=== PATIENT | female | born 1975 | race Caucasian/White ===

== ENCOUNTER 2016-07-21 12:41 | Emergency (ER) | payer MEDICARE, MEDICAID ==
[~2016-07-21] VITALS: Ht 165.1 cm; Wt 63.6 kg
[2016-07-21 12:45] VITALS: BP 130/81; PULSE 96; RESP 18; O2SAT 98
--- NOTE | 2016-07-21 13:00 | ED.REPORT ---
HPI-Chest Pain 40 and Over Date of Service Jul 21, 2016 ED Provider: Nakul Maharaj DO Patient is as 40 year old female with a hx of rheumatoid arthritis, MS, pulmonary embolism, and gastroparesis who presents to the ED due to chest pain onset last night. Pt says she is, "just not feeling well in general." She describes the pain as a dull ache and rates it 10/10 in severity. Nursing Notes Stated Complaint: THROWING UP,BAD CHEST PAINS,HARD TO BREATH Chief Complaint: Chest Pain-Non Cardiac Nature Nursing Notes Reviewed: Yes Allergies: Coded Allergies: Penicillins (Verified Allergy, Severe, 07/21/16) ketamine (Verified Allergy, Severe, 07/21/16) promethazine (Verified Allergy, Severe, 07/21/16) soy (Verified Allergy, Severe, 07/21/16) Uncoded Allergies: CELIAC (Allergy, Severe, 07/21/16) General Time Seen by MD: 13:00 Chief Complaint Chest pain Hx Obtained From: Patient Arrived By: Walk-in Sudden in Onset?: Yes Onset Occurred: 9 - 12 hours ago Symptom Duration: Since onset Quality: Aching Radiation: : Does not radiate Severity: Current: Pain level 10 out of 10 Recent Healthcare: No recent doctor visit, No recent hospitalization Similar Sx Previous: No Past Medical History Past Medical History pulmonary embolism gastroparesis rheumatoid arthritis MS Past Surgical History denies Smoking History Unknown if Ever Smoker Social History Other Social History: Good social support Ambulatory Status Independent Review of Systems Cardiovascular: Reports: Chest pain Complete sys rev & neg: except as marked. Physical Exam Initial Vital Signs Vital Signs (First) Date Time Temp Pulse Resp B/P Pulse Ox O2 Delivery O2 Flow Rate FiO2 07/21/16 12:45 96 18 130/81 98 Room Air 07/21/16 17:22 36.6 Initial VS: Reviewed General/Constitutional: Awake, Alert, No acute distress, Well appearing, Cooperative, Not toxic appearing Respiratory / Chest: Atraumatic, Breath sounds NL, Breath sounds = bilat, No respiratory distress, No rales, No rhonchi, No wheezing, No retractions khan cath in right chest Cardiovascular: Heart rate NL, Regular rhythm, Heart sounds NL, No gallop, No murmurs, No rubs Abdomen: Atraumatic, Soft, Non-tender, McBurney's non-tender, No guarding, No rebound, BS normoactive Interpretation & Diagnostics Interpretation & Diagnostics: ANGIOGRAPHY CT IMPRESSION: No left-sided pulmonary embolus is found. There is a small nonocclusive thrombus within the right upper lobe pulmonary artery extending into the right posterior upper lobe arterial segment. No pulmonary infarction or ischemic injury is associated. Dictated by: Gregorio Mar M.D. on 07/21/2016 at 15:50 Approved by: Gregorio Mar M.D. on 07/21/2016 at 16:04 Lab Results Interpretation Result Diagram: 07/21/16 1353 07/21/16 1353 Test 07/21/16 13:53 07/21/16 13:55 White Blood Count 8.1th/mm3 (3.8-10.1) Red Blood Count 3.61mil/mm3 (3.90-5.20) Hemoglobin 11.8g/dL (12.0-15.6) Hematocrit 36.0% (35.0-46.0) Mean Corpuscular Volume 99.7fL (81-100) Mean Corpuscular Hemoglobin 32.7pg (27.0-35.0) Mean Corpuscular Hemoglobin Concent 32.8% (32.0-37.0) Red Cell Distribution Width 14.8% (12.3-15.4) Platelet Count 209bil/L (150-400) Neutrophils (%) (Auto) 63.9% (40-74) Lymphocytes (%) (Auto) 26.9% (14-46) Monocytes (%) (Auto) 6.6% (4-12) Eosinophils (%) (Auto) 2.1% (0-5) Basophils (%) (Auto) 0.4% (0-3) D-Dimer < 0.5mg/L (<0.50) Sodium Level 140mEq/L (134-144) Potassium Level 3.8mEq/L (3.5-5.2) Chloride Level 106mEq/L (97-108) Carbon Dioxide Level 22mmol/L (18-29) Blood Urea Nitrogen 8mg/dL (6-24) Creatinine 0.32mg/dL (0.57-1.00) Estimat Glomerular Filtration Rate 326mL/min (>59) Glucose Level 102mg/dL (60-99) Calcium Level 8.2mg/dL (8.5-10.1) Magnesium Level 1.7mg/dL (1.6-2.6) Total Bilirubin 0.6mg/dL (0.0-1.2) Aspartate Amino Transf (AST/SGOT) 13U/L (0-50) Alanine Aminotransferase (ALT/SGPT) 7U/L (0-32) Alkaline Phosphatase 36U/L (25-150) Troponin T < 0.010ug/L (0.0-0.011) Total Protein 5.7g/dL (6.4-8.4) Albumin 3.6g/dL (3.4-5.0) Hold Diaz Top Tube Received (Received) ECG Interpretation Time: 14:37 Interpreted by: ED physician Normal ECG Interpretation: Normal ECG w/ rate of... (59) Re-Eval/Medical Decision Med Decision/Clinical Course This is a patient with known recurrent pulmonary emboli most recently approximately a month ago who presents on anticoagulation with recurrent chest pain concerning for recurrent PE. Chest CT is obtained which shows a pulmonary embolism in the same distribution of her PE one month ago, initially her d-dimer is negative. These findings in combination suggest no new pulmonary embolism. Patient's artery on full dose anticoagulation. She is agreeable to discharge and strict return and follow-up precautions are given. Time of Eval: 16:42 Re-Evaluation/Progress Note: Pt rechecked. Informed of Ct results and plan of treatment. Pt understands and agrees with plan. All questions addressed. Counseled Regarding: Diagnosis, Lab results, Need for follow-up, When/why to return to ED Discharge & Departure Primary Impression: Chest pain Chest pain type: unspecified Qualified Code: R07.9 - Chest pain, unspecified Disposition: Home Discharge Condition All VS Reviewed: Yes Condition: Stable Additional Instructions: Based on your lab and CAT scan today as compared with your CAT scan from before it does not appear to have a new pulmonary embolism, nor does it appear that you have a heart attack or pneumonia or other pathology. Continue your regular medication. Call your primary care and specialist at [facility] as needed. Return to ER for any concerns for pulmonary embolism, or other concerns. Scribe Attestation Portion of this note were transcribed by Gilbert Ashton. I, Dr. Maharaj, personally performed the history, physical exam, and medical decision-making: I reviewed and confirmed the accuracy for the information in the transcribed note. Signed by: cari Singh, 07/21/16 Nakul Bowser DO Jul 21, 2016 13:00 GILBERT ASHTON Jul 21, 2016 13:30
[2016-07-21] MEDS ORDERED: Ondansetron 2 mg/mL 2 mL Inj IVPUSH ONE (13:25)
[2016-07-21 13:57] LABS: BASOPHILS % (AUTO) 0.4 % (0-3); EOSINOPHILS % (AUTO) 2.1 % (0-5); MONOCYTES % (AUTO) 6.6 % (4-12); Mean Corpuscular Hemoglobin 32.7 pg (27.0-35.0); Mean Corpuscular Volume 99.7 fL (81-100); NEUTROPHILS % (AUTO) 63.9 % (40-74); Platelet Count 209 bil/L (150-400)
[2016-07-21 14:35] LABS: Magnesium 1.7 mg/dL (1.6-2.6)
[2016-07-21 14:37] LABS: TROPONIN T < 0.010 ug/L (0.0-0.011)
[2016-07-21] MEDS ORDERED: ProchlorPERazine 5 mg/mL 2 mL Inj IVPUSH ONE (15:00)
--- NOTE | 2016-07-21 16:06 | DRSVH ---
PROCEDURE: CT ANGIO CHEST PULMONARY EMBOLISM ([id number]) INDICATIONS: chest pain, h/o recurrent PE TECHNIQUE: After the administration of intravenous contrast, 2 mm thick sections acquired from the pulmonary api zhanna to the posterior costophrenic angles. 3-dimensional maximum intensity projection (MIP) coronal a nd sagittal reformats were then acquired through the thorax. For radiation dose reduction, the follo wing was used: automated exposure control, adjustment of mA and/or kV according to patient size. COMPARISON: [facility], CT, PE STUDY (CTA CHEST), 01/08/2008, 15:02. FINDINGS: Image quality: Excellent. Pulmonary arteries: Pulmonary arteries are normal in size, and demonstrate no definite left-sided in traluminal filling defects to suggest central pulmonary embolism. There is, however, a nonocclusive thrombus involving the right upper lobe pulmonary artery, branching posteriorly into the posterior se gmental pulmonary artery in that area. Lungs and pleura: Lungs are clear. No pleural effusions or pneumothorax. Central and peripheral ai rways are patent. Mediastinum: Heart size is normal, without pericardial effusion. No mediastinal or hilar adenopathy . Thoracic aorta is normal in caliber and enhancement. Esophagus is normal in caliber, without hiat al hernia. Bones and chest wall: No suspicious bony lesions. Ribs and thoracic spine appear intact throughout. Thyroid gland appears normal where well visualized. No axillary or supraclavicular adenopathy. Abdomen: Visualized upper abdominal solid organs appear normal in the early arterial phase of enhanc ement. IMPRESSION: No left-sided pulmonary embolus is found. There is a small nonocclusive thrombus within the right upper lobe pulmonary artery extending into the right posterior upper lobe arterial segment. No pulmonary infarction or ischemic injury is associated. Dictated by: Gregorio Mar M.D. on 07/21/2016 at 15:50 Approved by: Gregorio Mar M.D. on 07/21/2016 at 16:04
[2016-07-21] MEDS ORDERED: HepLOK Flush 100 unit/mL 5 mL Inj ONE ×2 (17:09→17:10)
[2016-07-21 17:22] VITALS: BP 112/55; PULSE 74; RESP 18; O2SAT 100
== END 2016-07-21 17:24 | disposition home or self-care (01) ==
LOC: SED 12:41
DX: R07.9 Chest pain, unspecified (principal); Z86.711 Personal history of pulmonary embolism; Z87.19 Personal history of other diseases of the digestive system; Z87.39 Personal history of other diseases of the musculoskeletal system and connective tissue; Z88.0 Allergy status to penicillin; Z88.8 Allergy status to other drugs, medicaments and biological substances
CPT/HCPCS: 36415; 71275; 80053; 83735; 84484; 85025; 85379; 93005; 96374; 96375; 99285; J0780; J1642; J2270; J2405; Q9967

== ENCOUNTER 2016-08-06 14:36 | Emergency (ER) | payer MEDICARE, MEDICAID ==
[~2016-08-06] VITALS: Ht 165.1 cm; Wt 63.6 kg
[2016-08-06 14:41] VITALS: BP 133/83; PULSE 80; RESP 12; O2SAT 100
[2016-08-06 15:00] VITALS: BP 137/80; PULSE 98; RESP 24; O2SAT 97
--- NOTE | 2016-08-06 15:19 | ED.REPORT ---
HPI-Chest Pain 40 and Over Date of Service Aug 06, 2016 ED Provider: Eduar So MD A 41 year old female with a history of PE, MS and gastroparesis presents to the ED complaining of chest pain that began yesterday. Patient was recently diagnosed with a PE 2 weeks ago. Her symptoms feel similar to her previous clot but this current episode of pain is exaggerated. Her chest pain is exacerbated by deep breath. She describes the pain as "shooting" and "stabbing". Associated symptoms include SOB, non-productive cough, chills, nausea and diaphoresis. She has been taking Xarelto as prescribed. Patient denies fever, productive cough, rhinorrhea or abdominal pain. Nursing Notes Stated Complaint: CHEST PAIN, BODY PAIN, DIFFCULTY BREATHING Chief Complaint: Chest Pain Nursing Notes Reviewed: Yes Allergies: Coded Allergies: Penicillins (Verified Allergy, Severe, 07/21/16) ketamine (Verified Allergy, Severe, 07/21/16) promethazine (Verified Allergy, Severe, 07/21/16) soy (Verified Allergy, Severe, 07/21/16) Uncoded Allergies: CELIAC (Allergy, Severe, 07/21/16) Scheduled Lorazepam (Lorazepam) 1 Mg Tablet 1 MG PO QID take with zofran Morphine Sulfate (Morphine Sulfate) 15 Mg Tablet 15 MG PO QID Ondansetron (Ondansetron) 4 Mg Tablet 4 MG PO QID take as same times a ativan Rivaroxaban (Xarelto) 20 Mg Tablet 20 MG PO DAILY Scheduled PRN Hydromorphone (Hydromorphone) 2 Mg Tablet 2 MG PO every 4 hours PRN PRN For Pain Lorazepam (Lorazepam Oral Concentrate) 2 Mg/1 Ml Oral.conc 1 MG PO PRN if unable to tolerate tablet General Time Seen by MD: 15:13 Chief Complaint Chest pain Hx Obtained From: Patient Arrived By: Walk-in Sudden in Onset?: No Onset Occurred: Yesterday Symptom Duration: Since onset Location: : Chest right Quality: Painful Radiation: : Does not radiate Migration/Movement: Reports: None Severity: Current: Moderate Severity: Maximum: Moderate Associated with: Reports: Cough, non-productive, Diaphoresis, Nausea, Shortness of Breath, Denies: Cough, productive, Fever Pertinent Negative: Pt denies other symptoms Exacerbated by: Deep breath Recent Healthcare: Recent doctor visit, Recent hospitalization Risk Factors )( CAD Risk Stratification Risk factors reviewed )( TAD Risk Stratification Risk factors reviewed )( PE Risk Stratification Previous PE Risk factors reviewed Past Medical History Past Medical History Pulmonary embolism Gastroparesis rheumatoid arthritis MS Past Surgical History denies Smoking History Unknown if Ever Smoker Social History Other Social History: Good social support, Local resident Ambulatory Status Independent Review of Systems Constitutional: Reports: Chills, Denies: Fever Respiratory: Reports: Non-productive cough, Shortness of breath, Denies: Prod cough, clear Cardiovascular: Reports: Chest pain GI: Reports: Nausea, Denies: Abdominal pain Skin: Reports Diaphoresis Neurologic: Denies: Change LOC Complete sys rev & neg: except as marked. Ears / Nose / Throat: Denies: Nasal congestion Allergy / Immune: Denies: Rhinorrhea Physical Exam Initial Vital Signs Vital Signs (First) Date Time Temp Pulse Resp B/P Pulse Ox O2 Delivery O2 Flow Rate FiO2 08/06/16 14:41 36.8 80 12 133/83 100 Room Air 08/06/16 18:32 2 Initial VS: Reviewed Head / Eyes: Atraumatic, Normocephalic, PERRL Extremities: Vascular intact, Neuro intact, No swelling, No tenderness Skin: Warm, Dry, No cyanosis Neurologic: Alert, Oriented, Nonfocal Psychiatric: Mood/affect normal, Behavior normal, Normal thought content General/Constitutional: Awake, Alert Distress / Hydration: Positive: Distress mild Respiratory / Chest: Atraumatic, Breath sounds NL, Breath sounds = bilat, No respiratory distress Cardiovascular: Heart rate NL, Regular rhythm, Heart sounds NL Abdomen: Atraumatic, Soft, Non-tender Interpretation & Diagnostics Lab Results Interpretation Result Diagram: 08/06/16 1625 08/06/16 1625 Test 08/06/16 16:25 White Blood Count 6.9th/mm3 (3.8-10.1) Red Blood Count 3.38mil/mm3 (3.90-5.20) Hemoglobin 11.2g/dL (12.0-15.6) Hematocrit 34.0% (35.0-46.0) Mean Corpuscular Volume 100.6fL (81-100) Mean Corpuscular Hemoglobin 33.1pg (27.0-35.0) Mean Corpuscular Hemoglobin Concent 32.9% (32.0-37.0) Red Cell Distribution Width 14.3% (12.3-15.4) Platelet Count 217bil/L (150-400) Neutrophils (%) (Auto) 64.7% (40-74) Lymphocytes (%) (Auto) 25.5% (14-46) Monocytes (%) (Auto) 6.8% (4-12) Eosinophils (%) (Auto) 2.6% (0-5) Basophils (%) (Auto) 0.3% (0-3) Prothrombin Time 13.0sec (8.1-12.5) Prothromb Time International Ratio 1.21ratio Activated Partial Thromboplast Time 41.5sec (22.8-33.0) D-Dimer < 0.5mg/L (<0.50) Sodium Level 139mEq/L (134-144) Potassium Level 3.9mEq/L (3.5-5.2) Chloride Level 102mEq/L (97-108) Carbon Dioxide Level 25mmol/L (18-29) Blood Urea Nitrogen 8mg/dL (6-24) Creatinine 0.35mg/dL (0.57-1.00) Estimat Glomerular Filtration Rate 293mL/min (>59) Glucose Level 96mg/dL (60-99) Calcium Level 8.2mg/dL (8.5-10.1) Magnesium Level 1.9mg/dL (1.6-2.6) Total Bilirubin 0.6mg/dL (0.0-1.2) Aspartate Amino Transf (AST/SGOT) 15U/L (0-50) Alanine Aminotransferase (ALT/SGPT) 11U/L (0-32) Alkaline Phosphatase 41U/L (25-150) Troponin T < 0.010ug/L (0.0-0.011) Pro-B-Type Natriuretic Peptide 201.3pg/mL (0-130) Total Protein 5.7g/dL (6.4-8.4) Albumin 3.6g/dL (3.4-5.0) Hold Diaz Top Tube Received (Received) ECG Interpretation ECG Interpretation: Normal Sinus Rhythm Rate [address] elevation Time: 15:16 Interpreted by: ED physician Normal ECG Interpretation: No change from prior ECGs (07/21/2016) X-Ray Chest Interpretation Chest Xray Interpretation: IMPRESSION: Double lumen catheter with tip into the right atrium. Lungs are clear of acute disease. Dictated by: Ketan Dietrich M.D. on 08/06/2016 at 16:45 Interpretation / Wet Read by: Interpret - Radiologist CT Chest Interpretation IMPRESSION: Persistent filling defect as before branch of the right pulmonary arterial system, unchanged in appearance and extent since 07/21/16. No other pulmonary emboli are seen. This lack of change in peripheral position would suggest it may be a re\\re endothelialized and retracted clot. No acute disease is seen in the lungs. Dictated by: Ketan Dietrich M.D. on 08/06/2016 at 18:22 Study type: Chest CT w contrast, CT pulm angiogram Interpretation / Wet Read by: Interpret - Radiologist Re-Eval/Medical Decision Med Decision/Clinical Course 41-year-old female with history of PE on xarelto, gastroparesis sending with right-sided chest pain [address] Angio chest showed no change in previous PE in comparison to CT scan performed 2 weeks ago and 6 weeks ago. She plans noted. EKG unremarkable. Vital signs stable. Patient is already on Xarelto and there is no new PE therefore I believe she can be discharged home with plan to follow up with her travel writer oncologist and her primary doctor. Discussed with patient and she agrees with plan. Time of Eval: 18:50 Patient Status: Condition improved Re-Evaluation/Progress Note: Patient is rechecked. She is informed of her X-ray results, EKG results, CT results and diagnosis. All of the patient's questions are addressed. She understands and agrees with the treatment plan. Counseled Regarding: Diagnosis, Lab results, Need for follow-up, When/why to return to ED Discharge & Departure Primary Impression: Chest pain Chest pain type: unspecified Qualified Code: R07.9 - Chest pain, unspecified Additional Impression: Chronic pulmonary embolism Pulmonary embolism type: other Acute cor pulmonale presence: without acute cor pulmonale Qualified Code: I27.82 - Chronic pulmonary embolism Disposition: Home Discharge Condition All VS Reviewed: Yes Condition: Stable Patient Instructions: Chest Pain (ED), Pulmonary Embolism (ED) Additional Instructions: Thank you for trusting us with your care this evening. Your emergency department evaluation today included interview, examination, lab work, EKG, chest X-ray and chest CT. Your results are reassuring that there is no change from the previous pulmonary embolism. Schedule a follow up appointment with your primary care physician in the next 2- 3 days for a recheck and I recommend you schedule an appointment with a travel writer in the near future. Please return to the emergency department for any new or worsening conditions including any difficulty breathing or worsening pain. Referrals: Joe Tao MD (PCP) Scribe Attestation Portions of this note were transcribed by Deisy Mendoza. I, Dr. So personally performed the history, physical exam and medical decision-making; I reviewed and confirmed the accuracy of the information in the transcribed note. Signed by: Berna Pugh, 08/06/16 1900. copies to: Joe Tao MD, Ben M MD Aug 06, 2016 15:19 DEISY MENDOZA Aug 06, 2016 15:36
[2016-08-06] MEDS ORDERED: Ondansetron 2 mg/mL 2 mL Inj IVPUSH PRN (15:35)
[2016-08-06] MEDS ORDERED: ProchlorPERazine 5 mg/mL 2 mL Inj IVPUSH ONE (15:35)
[2016-08-06] MEDS ORDERED: RIVA20TA PO (16:36)
[2016-08-06] MEDS ORDERED: ONDA-53 PO (16:36)
[2016-08-06] MEDS ORDERED: HYDR2TAB28 PO (16:36)
[2016-08-06] MEDS ORDERED: LORA1TAB PO (16:36)
[2016-08-06] MEDS ORDERED: MORP15TA PO (16:36)
[2016-08-06] MEDS ORDERED: LORA2ORA4 PO (16:38)
[2016-08-06 16:43] LABS: BASOPHILS % (AUTO) 0.3 % (0-3); EOSINOPHILS % (AUTO) 2.6 % (0-5); MONOCYTES % (AUTO) 6.8 % (4-12); Mean Corpuscular Hemoglobin 33.1 pg (27.0-35.0); Mean Corpuscular Volume 100.6 fL (81-100); NEUTROPHILS % (AUTO) 64.7 % (40-74); Platelet Count 217 bil/L (150-400)
--- NOTE | 2016-08-06 16:47 | DRSVH ---
PROCEDURE: X-RAY CHEST ONE VIEW, PORTABLE ([id number]) INDICATIONS: chest pain TECHNIQUE: One view of the chest was acquired. COMPARISON: [facility], , CHEST 1 VIEW, 05/04/2016, 12:04. FINDINGS: Surgical changes and devices: There is a dual lumen catheter from the right internal jugular approach . The tip is at the level of the right atrium. Lungs and pleura: No pleural effusions or pneumothorax. Lungs are clear no acute change. There is a lso scarring and blunting of the right costophrenic sulcus.. Mediastinum: Mediastinal contours appear normal. Heart size is normal. Bones and chest wall: No suspicious bony lesions. Overlying soft tissues appear unremarkable. IMPRESSION: Double lumen catheter with tip into the right atrium. Lungs are clear of acute disease. Dictated by: Ketan Dietrich M.D. on 08/06/2016 at 16:45 Approved by: Ketan Dietrich M.D. on 08/06/2016 at 16:45
[2016-08-06 16:57] LABS: D-DIMER < 0.5 mg/L (<0.50); INR 1.21 ratio
[2016-08-06 17:03] LABS: TROPONIN T < 0.010 ug/L (0.0-0.011)
[2016-08-06 17:13] LABS: Magnesium 1.9 mg/dL (1.6-2.6)
[2016-08-06 18:32] VITALS: BP 102/73; PULSE 60; RESP 16
--- NOTE | 2016-08-06 18:39 | DRSVH ---
PROCEDURE: CT ANGIO CHEST PULMONARY EMBOLISM ([id number]) INDICATIONS: h/o PE, chest pain TECHNIQUE: After the administration of intravenous contrast, 2 mm thick sections acquired from the pulmonary api zhanna to the posterior costophrenic angles. 3-dimensional maximum intensity projection (MIP) coronal a nd sagittal reformats were then acquired through the thorax. For radiation dose reduction, the follo wing was used: automated exposure control, adjustment of mA and/or kV according to patient size. COMPARISON: [facility], CT, CT ANGIO CHEST PE, 07/21/2016, 15:31. [facility] , CR, XR CHEST 1VW (PORTABLE), 08/06/2016, 15:36. FINDINGS: Image quality: Good. Pulmonary arteries: Pulmonary arteries are normal in size, and demonstrate the same filling defect i n the same distribution and the same size as seen on the chest CT PE of 07/21/16. This filling defect was not on CT PE study a 01/08/2008. It is along the wall and it is unchanged and in fact may be an en dothelialized clot. No new clots are seen. Lungs and pleura: Lungs are clear. No pleural effusions or pneumothorax. Central and peripheral ai rways are patent. Mediastinum: Heart size is normal, without pericardial effusion. No mediastinal or hilar adenopathy . There is an old calcified lymph node in the left hilum. Thoracic aorta is normal in caliber and en hancement. Esophagus is normal in caliber, without hiatal hernia. Bones and chest wall: No suspicious bony lesions. Ribs and thoracic spine appear intact throughout. Thyroid gland is within normal limits. No axillary or supraclavicular adenopathy. Abdomen: Visualized upper abdominal solid organs appear normal in the early arterial phase of enhanc ement. IMPRESSION: Persistent filling defect as before branch of the right pulmonary arterial system, unchan ged in appearance and extent since 07/21/16. No other pulmonary emboli are seen. This lack of change in peripheral position would suggest it may be a re\re endothelialized and retrac grace clot. No acute disease is seen in the lungs. Dictated by: Ketan Dietrich M.D. on 08/06/2016 at 18:22 Approved by: Ketan Dietrich M.D. on 08/06/2016 at 18:38
[2016-08-06 19:07] VITALS: BP 119/67; PULSE 66; O2SAT 98
[2016-08-06 19:11] VITALS: BP 119/67; PULSE 66; RESP 16; O2SAT 98
== END 2016-08-06 19:12 | disposition home or self-care (01) ==
LOC: SED 14:36
DX: R07.9 Chest pain, unspecified (principal); I27.82 Chronic pulmonary embolism; R11.0 Nausea; R61 Generalized hyperhidrosis; G35 Multiple sclerosis; M06.9 Rheumatoid arthritis, unspecified; Z91.018 Allergy to other foods; Z88.0 Allergy status to penicillin; Z88.8 Allergy status to other drugs, medicaments and biological substances
CPT/HCPCS: 36415; 71010; 71275; 80053; 83735; 83880; 84484; 85025; 85379; 85610; 85730; 93005; 96374; 96375; 96376; 99285; J0780; J2270; Q9967

== ENCOUNTER 2016-08-20 11:56 | Emergency (ER) | payer MEDICARE, MEDICAID ==
[~2016-08-20] VITALS: Ht 165.1 cm; Wt 63.6 kg
[~2016-08-20 11:56] MED LIST: HYDR2TAB28 PO; LORA1TAB PO; LORA2ORA4 PO; MORP15TA PO; ONDA-53 PO; RIVA20TA PO
[2016-08-20 12:00] VITALS: BP 130/79; PULSE 77; RESP 18; O2SAT 98
--- NOTE | 2016-08-20 12:20 | ED.REPORT ---
HPI-Abd Pain F 40 and Over Date of Service Aug 20, 2016 ED Provider: Doc,Ed MD History of Present Illness: stomach pain has divertilitis and gastropresis had diarrhea, morphine doesn't touch the pain. pain in [place] heart feels like heart beat. [facility] was place 06/2016. 03/20 15 mg IR morphine and dilaulid for break through pain nausea vomit last night diarrhea continued till this am had 2 episodes. Nursing Notes Stated Complaint: ABDOMINAL PAIN Chief Complaint: Female Abdominal Pain Nursing Notes Reviewed: Yes Allergies: Coded Allergies: Penicillins (Verified Allergy, Severe, 08/20/16) ketamine (Verified Allergy, Severe, 08/20/16) promethazine (Verified Allergy, Severe, 08/20/16) soy (Verified Allergy, Severe, 08/20/16) Uncoded Allergies: CELIAC (Allergy, Severe, 07/21/16) Scheduled Lorazepam (Lorazepam) 1 Mg Tablet 1 MG PO QID take with zofran Morphine Sulfate (Morphine Sulfate) 15 Mg Tablet 15 MG PO QID Ondansetron (Ondansetron) 4 Mg Tablet 4 MG PO QID take as same times a ativan Rivaroxaban (Xarelto) 20 Mg Tablet 20 MG PO DAILY Scheduled PRN Hydromorphone (Hydromorphone) 2 Mg Tablet 2 MG PO every 4 hours PRN PRN For Pain Lorazepam (Lorazepam Oral Concentrate) 2 Mg/1 Ml Oral.conc 1 MG PO PRN if unable to tolerate tablet General Time Seen by MD: 12:19 Chief Complaint Abdominal pain Hx Obtained From: Patient Sudden in Onset?: No Symptom Duration: Since onset Location: : Diffuse Severity: Maximum: Pain level 10 out of 10 Past Medical History Past Medical History Pulmonary embolism Gastroparesis rheumatoid arthritis MS Past Surgical History denies Smoking History Never Smoker Social History Alcohol Use: Denies alcohol use Drug Use: Denies drug use Other Social History: Good social support, Local resident Occupation lives with caregiver/partner 08/20/2016 Ambulatory Status Independent Review of Systems Basic Review of Systems Eyes: Vision NL, No discharge Skin: No bruising, No rash, No itch Psychiatric: Normal thought content Physical Exam Vital Signs Vital Signs (First) Date Time Temp Pulse Resp B/P Pulse Ox O2 Delivery O2 Flow Rate FiO2 08/20/16 12:00 36.8 77 18 130/79 98 Room Air Initial VS: Reviewed, Vital signs normal Head / Eyes: Atraumatic, Normocephalic, PERRL ENT: Mucous membranes moist, Conjunctiva normal, No scleral icterus Neck: Supple, Non-tender, Full range of motion Lymphatic: No lymphadenopathy Extremities: Vascular intact, Neuro intact, No swelling, No tenderness Skin: Warm, Dry, No cyanosis Neurologic: Alert, Oriented, Nonfocal Psychiatric: Mood/affect normal, Behavior normal, Normal thought content General/Constitutional: Awake, Alert, No acute distress, Well appearing, Well developed Respiratory / Chest: Atraumatic, Breath sounds NL, Breath sounds = bilat, No respiratory distress Cardiovascular: Heart rate NL, Regular rhythm, Heart sounds NL, No gallop no point tenderness, diffuse discomfort, Interpretation & Diagnostics Lab Results Interpretation Result Diagram: 08/20/16 1315 08/20/16 1315 Test 08/20/16 12:45 08/20/16 13:15 Urine Color Straw (YELLOW) Urine Appearance Clear (CLEAR,HAZY) Urine pH 7.5 (5.0-8.0) Urine Specific [place] 1.010 (1.003-1.035) Urine Protein Negativemg/dL (NEG,TRACE) Urine Glucose (UA) Negativemg/dL (NEGATIVE) Urine Ketones 40mg/dL (NEGATIVE) Urine Occult Blood Trace (NEGATIVE) Urine Nitrite Negative (NEGATIVE) Urine Bilirubin Negative (NEGATIVE) Urine Urobilinogen Normalmg/dL (NORMAL) Urine Leukocyte Esterase Negative (NEGATIVE) Urine RBC 0-2/hpf (0-2) Urine WBC 0-5/hpf (0-5) Urine Epithelial Cells Few/hpf (NONE-MOD) Urine Crystals None seen (NONE SEEN) Urine Bacteria None/hpf (NONE-FEW) Urine Hyaline Casts None/lpf (NONE) Urine Granular Casts None seen (NONE SEEN) Urine Waxy Casts None seen (NONE SEEN) Urine Red Blood Cell Casts None seen (NONE SEEN) Urine White Blood Cell Casts None seen (NONE SEEN) Urine Mucus None seen (None Seen) Urine Trichomonas None seen (NONE SEEN) Urine Yeast None (NONE SEEN) Urinalysis Comment None Urine Culture Reflexed Not indicated White Blood Count 8.5th/mm3 (3.8-10.1) Red Blood Count 3.80mil/mm3 (3.90-5.20) Hemoglobin 12.5g/dL (12.0-15.6) Hematocrit 37.6% (35.0-46.0) Mean Corpuscular Volume 98.9fL (81-100) Mean Corpuscular Hemoglobin 32.9pg (27.0-35.0) Mean Corpuscular Hemoglobin Concent 33.2% (32.0-37.0) Red Cell Distribution Width 14.9% (12.3-15.4) Platelet Count 246bil/L (150-400) Neutrophils (%) (Auto) 78.3% (40-74) Lymphocytes (%) (Auto) 14.6% (14-46) Monocytes (%) (Auto) 6.1% (4-12) Eosinophils (%) (Auto) 0.4% (0-5) Basophils (%) (Auto) 0.4% (0-3) Sodium Level 140mEq/L (134-144) Potassium Level 4.0mEq/L (3.5-5.2) Chloride Level 102mEq/L (97-108) Carbon Dioxide Level 19mmol/L (18-29) Blood Urea Nitrogen 7mg/dL (6-24) Creatinine 0.44mg/dL (0.57-1.00) Estimat Glomerular Filtration Rate 225mL/min (>59) Glucose Level 91mg/dL (60-99) Calcium Level 8.8mg/dL (8.5-10.1) Total Bilirubin 1.0mg/dL (0.0-1.2) Aspartate Amino Transf (AST/SGOT) 18U/L (0-50) Alanine Aminotransferase (ALT/SGPT) 13U/L (0-32) Alkaline Phosphatase 51U/L (25-150) Troponin T 0.010ug/L (0.0-0.011) Total Protein 6.2g/dL (6.4-8.4) Albumin 3.8g/dL (3.4-5.0) Amylase Level 86U/L (28-100) Lipase 21U/L (13-60) Hold Diaz Top Tube Received (Received) Lab Results Interpretation: urine is negative CT Abd / Pelvis Interpretation TECHNIQUE: After the administration of intravenous contrast, 5 mm thick sections acquired from the diaphragm to the symphysis. 5 mm coronal and sagittal reformats were acquired. For radiation dose reduction, the following was used: automated exposure control, adjustment of mA and/or kV according to patient size. COMPARISON: [facility], CT, ABDOMEN/PELVIS WITH CONTRAST, 05/01/2016, 15:15. FINDINGS: Image quality: Excellent. ABDOMEN: Lung bases: Lung bases are clear. Heart size is normal. Solid organs: Liver and spleen are normal in size and enhancement. A subcentimeter low-density cystic lesion is present at the inferior aspect of the right lobe of the liver unchanged the study dated 05/01/16. This may represent a simple hepatic cyst. Gallbladder is unremarkable. Biliary system is non dilated. Pancreas enhances normally. No adrenal nodules. Kidneys demonstrate normal size and enhancement, without hydronephrosis. Peritoneum and bowel: The stomach is mildly distended with gas. The small bowel demonstrates normal caliber and wall thickness. There is moderate, diffuse mucosal thickening throughout the colon with trace pericolonic fat stranding. Colonic thickening is most pronounced at the cecum. The appendix is thin walled and gas filled. Trace low-density free fluid is present within the pelvis. No pneumoperitoneum. This is a new finding when compared with the prior CT of the abdomen dated 05/01/16. Nodes and vessels: No retroperitoneal or mesenteric adenopathy by size criteria. Aorta and inferior vena cava are normal in size. Miscellaneous: No ventral hernias. PELVIS: Genitourinary: Bladder wall thickness is normal. Uterus is grossly unremarkable. There is a 2.6 cm diameter low density right adnexal cyst which is likely physiologic in a premenopausal female. Miscellaneous: No inguinal hernias or adenopathy. Bones: No suspicious bony lesions. No vertebral body compression fractures. IMPRESSION: 1. Moderate, diffuse mucosal thickening of the colon with mild pericolonic fat stranding suspicious for colitis. Given patient age and lack of atheromatous calcification, infectious and inflammatory etiologies are favored. 2. Normal appendix. These findings were discussed with JOSE ALEJANDRO Nelson at 3:07 PM on 08/20/16. Dictated by: Domenica Flores M.D. on 08/20/2016 at 15:03 Approved by: Domenica Flores M.D. on 08/20/2016 at 15:08 Re-Eval/Medical Decision Med Decision/Clinical Course 41 year old female with abd pain and diarrhea. CT shows cololitis with normal labe. Consult with Dr. Mcmullen, send stool studies, sent. Await results, if positive for viral do not start antibiotics. If negative, can start antibiotics. Discharge & Departure Primary Impression: Colitis Disposition: Home Additional Instructions: Your labs are normal. The urine looks good. There is no sign of dehydration. The stool has been sent to the lab. We should have the results back tomorrow. Please call here tomorrow morning for the results of your stool studies. . If the results are negative, meaning no sign of norovirus or any other virus, you can start the antibiotics. Continue with your regular pain medications. You may need a dye study to make sure things are functioning with your catheter. Please call [place] for an appointment. Also call primary care and let them know what is happening. Referrals: Joe Tao MD (PCP) EDSupervising Provider for APC: Juan Love MD copies to: Joe Tao MD, Sue ARNP Aug 20, 2016 12:20
[2016-08-20] MEDS ORDERED: HYDROmorphone 0.5 mg/0.5 mL iSecure Syringe IVPUSH ONE (12:30)
[2016-08-20] MEDS ORDERED: ProchlorPERazine 5 mg/mL 2 mL Inj IVPUSH ONE (12:30)
[2016-08-20] MEDS ORDERED: 0.9% Sodium Chloride 1,000 ML IV ONE (12:30)
[2016-08-20 13:33] LABS: APPEARANCE,URINE CLEAR (CLEAR,HAZY); COLOR,URINE STRAW (YELLOW); PH,URINE 7.5 (5.0-8.0)
[2016-08-20 13:34] LABS: OCCULT BLOOD,URINE TRACE (NEGATIVE); UROBILINOGEN,URINE NORMAL (NORMAL)
[2016-08-20 13:45] LABS: BASOPHILS % (AUTO) 0.4 % (0-3); EOSINOPHILS % (AUTO) 0.4 % (0-5); MONOCYTES % (AUTO) 6.1 % (4-12); Mean Corpuscular Hemoglobin 32.9 pg (27.0-35.0); Mean Corpuscular Volume 98.9 fL (81-100); NEUTROPHILS % (AUTO) 78.3 % (40-74); Platelet Count 246 bil/L (150-400)
[2016-08-20 14:11] LABS: TROPONIN T 0.01 ug/L (0.0-0.011)
--- NOTE | 2016-08-20 15:10 | DRSVH ---
PROCEDURE: CT ABDOMEN AND PELVIS WITH CONTRAST ([id number]) INDICATIONS: abd pain TECHNIQUE: After the administration of intravenous contrast, 5 mm thick sections acquired from the diaphragm to the symphysis. 5 mm coronal and sagittal reformats were acquired. For radiation dose reduction, the following was used: automated exposure control, adjustment of mA and/or kV according to patient siz e. COMPARISON: [facility], CT, ABDOMEN/PELVIS WITH CONTRAST, 05/01/2016, 15:15. FINDINGS: Image quality: Excellent. ABDOMEN: Lung bases: Lung bases are clear. Heart size is normal. Solid organs: Liver and spleen are normal in size and enhancement. A subcentimeter low-density cysti c lesion is present at the inferior aspect of the right lobe of the liver unchanged the study dated 07/01/15. This may represent a simple hepatic cyst. Gallbladder is unremarkable. Biliary system is n on dilated. Pancreas enhances normally. No adrenal nodules. Kidneys demonstrate normal size and en hancement, without hydronephrosis. Peritoneum and bowel: The stomach is mildly distended with gas. The small bowel demonstrates normal c aliber and wall thickness. There is moderate, diffuse mucosal thickening throughout the colon with tr shira pericolonic fat stranding. Colonic thickening is most pronounced at the cecum. The appendix is th in walled and gas filled. Trace low-density free fluid is present within the pelvis. No pneumoperiton eum. This is a new finding when compared with the prior CT of the abdomen dated 05/01/16. Nodes and vessels: No retroperitoneal or mesenteric adenopathy by size criteria. Aorta and inferior vena cava are normal in size. Miscellaneous: No ventral hernias. PELVIS: Genitourinary: Bladder wall thickness is normal. Uterus is grossly unremarkable. There is a 2.6 cm diameter low density right adnexal cyst which is likely physiologic in a premenopausal female. Miscellaneous: No inguinal hernias or adenopathy. Bones: No suspicious bony lesions. No vertebral body compression fractures. IMPRESSION: 1. Moderate, diffuse mucosal thickening of the colon with mild pericolonic fat stranding suspicious f or colitis. Given patient age and lack of atheromatous calcification, infectious and inflammatory nimesh ologies are favored. 2. Normal appendix. These findings were discussed with JOSE ALEJANDRO Nelson at 3:07 PM on 08/20/16. Dictated by: Domenica Flores M.D. on 08/20/2016 at 15:03 Approved by: Domenica Flores M.D. on 08/20/2016 at 15:08
[2016-08-20 17:09] VITALS: BP 132/72; PULSE 75; RESP 16; O2SAT 98
== END 2016-08-20 17:13 | disposition home or self-care (01) ==
LOC: SED 11:56
DX: K52.9 Noninfective gastroenteritis and colitis, unspecified (principal); M06.9 Rheumatoid arthritis, unspecified; Z88.0 Allergy status to penicillin; Z88.8 Allergy status to other drugs, medicaments and biological substances
CPT/HCPCS: 36415; 74177; 80053; 81000; 81025; 82150; 83690; 84484; 85025; 87507; 96374; 96375; 99285; J0780; J1170; J2270; J7030; Q9967

== ENCOUNTER 2016-08-28 14:55 | Emergency (ER) | payer MEDICARE, MEDICAID ==
[~2016-08-28] VITALS: Ht 165.1 cm; Wt 68.2 kg
[2016-08-28 14:59] VITALS: BP 108/72; PULSE 80; RESP 16; O2SAT 98
--- NOTE | 2016-08-28 17:15 | ED.REPORT ---
HPI-General Illness Date of Service Aug 28, 2016 ED Provider: Ramiro Escobedo MD The patient is a 41 year old female with history of blood clots on Xarelto, gastroparesis, rheumatoid arthritis, and MS who presents to the emergency department complaining of a Ritter catheter problem. She was seen in [place] today to have the dressing changed. She is concerned that a suture was moved during the dressing change. She complains of mild pain and irritation around the site. She noticed surrounding redness 1.5 weeks ago and is also concerned the area may be infected. She has not noticed any discharge, chills, diaphoresis, or worsening redness/swelling. The catheter continues to function normally. She denies fever or vomiting. She has the Ritter catheter in place due to poor hydration related to her cyclical vomiting. The catheter was placed by Dr. Leopoldo Rodrigues at [facility] on June of this year. Nursing Notes Stated Complaint: CATHETER ISSUES Chief Complaint: General Complaint Nursing Notes Reviewed: Yes Allergies: Coded Allergies: Penicillins (Verified Allergy, Severe, 08/28/16) ketamine (Verified Allergy, Severe, 08/28/16) promethazine (Verified Allergy, Severe, 08/28/16) soy (Verified Allergy, Severe, 08/28/16) Uncoded Allergies: CELIAC (Allergy, Severe, 07/21/16) Scheduled Lorazepam (Lorazepam) 1 Mg Tablet 1 MG PO QID take with zofran Morphine Sulfate (Morphine Sulfate) 15 Mg Tablet 15 MG PO QID Ondansetron (Ondansetron) 4 Mg Tablet 4 MG PO QID take as same times a ativan Rivaroxaban (Xarelto) 20 Mg Tablet 20 MG PO DAILY Scheduled PRN Hydromorphone (Hydromorphone) 2 Mg Tablet 2 MG PO every 4 hours PRN PRN For Pain Lorazepam (Lorazepam Oral Concentrate) 2 Mg/1 Ml Oral.conc 1 MG PO PRN if unable to tolerate tablet General Time Seen by MD: 17:12 Chief Complaint Other (catheter problem) Hx Obtained From: Patient, Spouse Arrived By: Walk-in Sudden in Onset?: Yes Onset Occurred: 1 - 4 hours ago Symptom Duration: Since onset Location: : Chest (around catheter site) Quality: Painful Severity: Current: Mild Severity: Maximum: Moderate Past Medical History Past Medical History Pulmonary embolism Gastroparesis Rheumatoid arthritis MS Past Surgical History Denies Family History Noncontributory Smoking History Never Smoker Social History Alcohol Use: Denies alcohol use Drug Use: Denies drug use Other Social History: Good social support, Local resident Occupation lives with caregiver/partner 08/20/2016 Ambulatory Status Independent Review of Systems +catheter problem Full Review of Systems Constitutional: Reports: Chills, Denies: Fever GI: Reports: Diarrhea (chronic), Nausea (chronic), Denies: Vomiting Skin: Reports Diaphoresis Complete sys rev & neg: except as marked. Physical Exam Vital Signs Vital Signs Date Time Temp Pulse Resp B/P Pulse Ox O2 Delivery O2 Flow Rate FiO2 08/28/16 20:11 37.0 84 16 115/76 99 Room Air 08/28/16 18:25 36.7 72 17 110/67 98 Room Air 08/28/16 14:59 36.6 80 16 108/72 98 Room Air Initial VS: Reviewed Head / Eyes: Atraumatic, Normocephalic, PERRL Neck: Supple, Non-tender, Full range of motion Cardiovascular: Regular rate & rhythm, Heart sounds normal, Intact distal pulses Lymphatic: No lymphadenopathy Extremities: Vascular intact, Neuro intact, No swelling, No tenderness Skin: Warm, Dry, No cyanosis Neurologic: Alert, Oriented, Nonfocal Psychiatric: Mood/affect normal, Behavior normal, Normal thought content General/Constitutional: Awake, Alert, Cooperative ENT: Airway patent Mouth: Positive: Mucous membranes dry (slightly) Respiratory / Chest: Breath sounds NL, Breath sounds = bilat, No respiratory distress, No rales, No rhonchi, No wheezing, No retractions About her right anterior chest wall there is a Ritter catheter present with an occlusive dressing overlying it. There is mild erythema extending 5-10 mm outward from the catheter site. There is no purulent drainage. There is a suture present about the catheter, it seems to be somewhat tucked. Abdomen: Soft, Non-tender, McBurney's non-tender, No guarding, No rebound, BS normoactive, No distention, No hernia, No palpable mass, No pulsatile mass Back: No midline vertebral tend Flank / Spine / Paraspinal: Positive: Flank tender bilateral Lower Extremity / Pelvis / MS: Neurologic intact, Vascular intact No calf swelling or tenderness Interpretation & Diagnostics Lab Results Interpretation Result Diagram: 08/28/16182508/28/161825 Test 08/28/16 18:26 08/28/16 19:41 White Blood Count 8.9th/mm3 (3.8-10.1) Red Blood Count 3.67mil/mm3 (3.90-5.20) Hemoglobin 12.0g/dL (12.0-15.6) Hematocrit 36.6% (35.0-46.0) Mean Corpuscular Volume 99.7fL (81-100) Mean Corpuscular Hemoglobin 32.7pg (27.0-35.0) Mean Corpuscular Hemoglobin Concent 32.8% (32.0-37.0) Red Cell Distribution Width 14.9% (12.3-15.4) Platelet Count 204bil/L (150-400) Neutrophils (%) (Auto) 59.0% (40-74) Lymphocytes (%) (Auto) 29.5% (14-46) Monocytes (%) (Auto) 6.7% (4-12) Eosinophils (%) (Auto) 3.8% (0-5) Basophils (%) (Auto) 0.5% (0-3) Sodium Level 137mEq/L (134-144) Potassium Level 4.0mEq/L (3.5-5.2) Chloride Level 104mEq/L (97-108) Carbon Dioxide Level 18mmol/L (18-29) Blood Urea Nitrogen 14mg/dL (6-24) Creatinine 0.48mg/dL (0.57-1.00) Estimat Glomerular Filtration Rate 203mL/min (>59) Glucose Level 82mg/dL (60-99) Lactic Acid Level 0.7mmol/L (0.4-2.0) Calcium Level 8.6mg/dL (8.5-10.1) Total Bilirubin 0.3mg/dL (0.0-1.2) Aspartate Amino Transf (AST/SGOT) 35U/L (0-50) Alanine Aminotransferase (ALT/SGPT) 24U/L (0-32) Alkaline Phosphatase 43U/L (25-150) Total Protein 5.7g/dL (6.4-8.4) Albumin 3.5g/dL (3.4-5.0) Urine Color Yellow (YELLOW) Urine Appearance Cloudy (CLEAR,HAZY) Urine pH 5.0 (5.0-8.0) Urine Specific [place] 1.025 (1.003-1.035) Urine Protein Negativemg/dL (NEG,TRACE) Urine Glucose (UA) Negativemg/dL (NEGATIVE) Urine Ketones 15mg/dL (NEGATIVE) Urine Occult Blood Large (NEGATIVE) Urine Nitrite Negative (NEGATIVE) Urine Bilirubin Negative (NEGATIVE) Urine Urobilinogen Normalmg/dL (NORMAL) Urine Leukocyte Esterase Small (NEGATIVE) Urine RBC >50/hpf (0-2) Urine WBC 6-10/hpf (0-5) Urine Epithelial Cells Occasional/hpf (NONE-MOD) Urine Crystals None seen (NONE SEEN) Urine Bacteria None/hpf (NONE-FEW) Urine Hyaline Casts None/lpf (NONE) Urine Granular Casts None seen (NONE SEEN) Urine Waxy Casts None seen (NONE SEEN) Urine Red Blood Cell Casts None seen (NONE SEEN) Urine White Blood Cell Casts None seen (NONE SEEN) Urine Mucus None seen (None Seen) Urine Trichomonas None seen (NONE SEEN) Urine Yeast None (NONE SEEN) Urinalysis Comment None Urine Culture Reflexed Indicated X-Ray Chest Interpretation Chest Xray Interpretation: IMPRESSION: No acute cardiopulmonary findings. Unchanged pheresis catheter in expected position. Dictated by: Domenica Flores M.D. on 08/28/2016 at 18:51 Interpretation / Wet Read by: Interpret - Radiologist Re-Eval/Medical Decision Med Decision/Clinical Course The patient is a 41 year old female with history of blood clots on Xarelto, gastroparesis, rheumatoid arthritis, and MS who presents to the emergency department complaining of a Ritter catheter problem. She was seen in [place] today to have the dressing changed. She is concerned that a suture was moved during the dressing change. She complains of mild pain and irritation around the site. She noticed surrounding redness 1.5 weeks ago and is also concerned the area may be infected. She has not noticed any discharge, chills, diaphoresis, or worsening redness/swelling. The catheter continues to function normally. She denies fever or vomiting. She has the Ritter catheter in place due to poor hydration related to her cyclical vomiting. The catheter was placed by Dr. Leopoldo Rodrigues at [facility] on June of this year. Reviewed AIDE report, the patient is taking hydromorphone, lorazepam, and morphine. Here in the emergency department she is afebrile with stable vital signs and nontoxic in appearance. There is a suture present about her Ritter catheter and the suture is not anchored to the scan as a nurse already attempted to remove it earlier today. No convincing signs of infection about the catheter and she appears to have some mild skin irritation. IV therapy evaluated the catheter and it is functioning normally. They stated that the suture should be removed and they went ahead and did so. 2 sets of blood cultures were obtained , at this time I see no indication to initiate antibiotics. She will follow up blood cultures in the next 1-2 days. Chest x-ray confirmed appropriate placement of the catheter and CBC/CMP were unremarkable. Follow-up and return precautions were reviewed in detail with the patient and she was discharged in good condition. Source of Hx: Old records Time of Eval: 20:07 Re-Evaluation/Progress Note: Rechecked the patient. Discussed plan for discharge. All questions were addresed. Counseled Regarding: Diagnosis, Lab results, Need for follow-up, When/why to return to ED Discharge & Departure Primary Impression: Mechanical complication of Ritter catheter Additional Impression: Skin irritation Disposition: Home Discharge Condition All VS Reviewed: Yes Condition: Stable Additional Instructions: Thank you for seeking care at the emergency room. Our primary goal today in the ED was to evaluate you for any life-threatening conditions. Your evaluation was reassuring. I do not believe there is an infection at this time. The redness around the catheter site appears to be more irritation. We have sent two blood cultures to the lab. If either of these are abnormal you will receive a call. You should follow-up with your doctor or surgeon in the next week for re- evaluation. You should return to the ED immediately if you develop recurrent pain, increased redness or swelling, purulent drainage, fevers, vomiting, or any other concerning signs or symptoms. Thank you for letting us partake in your care today. Referrals: Joe Tao MD (PCP) Scribe Attestation Portions of this note were transcribed by Kaitlyn Christina. I, Dr. Escobedo personally performed the history, physical exam and medical decision-making; I reviewed and confirmed the accuracy of the information in the transcribed note. Signed by: Berna Chavez, 08/28/2016 at 2020. copies to: Joe Tao MD, Beck O MD Aug 28, 2016 17:15 Kaitlyn Christina Aug 28, 2016 17:18
[2016-08-28] MEDS ORDERED: HYDROcodone-APAP 5-325 mg Tablet PO ONE (18:00)
[2016-08-28 18:25] VITALS: BP 110/67; PULSE 72; RESP 17; O2SAT 98
[2016-08-28 18:38] LABS: BASOPHILS % (AUTO) 0.5 % (0-3); EOSINOPHILS % (AUTO) 3.8 % (0-5); MONOCYTES % (AUTO) 6.7 % (4-12); Mean Corpuscular Hemoglobin 32.7 pg (27.0-35.0); Mean Corpuscular Volume 99.7 fL (81-100); Platelet Count 204 bil/L (150-400)
--- NOTE | 2016-08-28 18:53 | DRSVH ---
PROCEDURE: X-RAY CHEST ONE VIEW, PORTABLE ([id number]) INDICATIONS: assess catheter TECHNIQUE: One view of the chest was acquired. COMPARISON: [facility], CR, XR CHEST 1VW (PORTABLE), 08/06/2016, 15:36. FINDINGS: Surgical changes and devices: A right internal jugular pheresis catheter is present, the tip of which is in the right atrium. Lungs and pleura: No pleural effusions or pneumothorax. Lungs are clear. Mediastinum: Mediastinal contours appear normal. Heart size is normal. Bones and chest wall: No suspicious bony lesions. Overlying soft tissues appear unremarkable. IMPRESSION: No acute cardiopulmonary findings. Unchanged pheresis catheter in expected position. Dictated by: Domenica Flores M.D. on 08/28/2016 at 18:51 Approved by: Domenica Flores M.D. on 08/28/2016 at 18:52
[2016-08-28 20:11] VITALS: BP 115/76; PULSE 84; RESP 16; O2SAT 99
[2016-08-28 20:28] LABS: APPEARANCE,URINE CLOUDY (CLEAR,HAZY); COLOR,URINE YELLOW (YELLOW); OCCULT BLOOD,URINE LARGE (NEGATIVE); UROBILINOGEN,URINE NORMAL (NORMAL)
== END 2016-08-28 20:14 | disposition home or self-care (01) ==
LOC: SED 14:55
DX: T85.698A Other mechanical complication of other specified internal prosthetic devices, implants and grafts, initial encounter (principal); L98.9 Disorder of the skin and subcutaneous tissue, unspecified; Y84.8 Other medical procedures as the cause of abnormal reaction of the patient, or of later complication, without mention of misadventure at the time of the procedure; Y93.9 Activity, unspecified; Y99.8 Other external cause status; Y92.9 Unspecified place or not applicable; G35 Multiple sclerosis; Z87.19 Personal history of other diseases of the digestive system; Z86.711 Personal history of pulmonary embolism; Z79.01 Long term (current) use of anticoagulants; Z88.0 Allergy status to penicillin; Z88.4 Allergy status to anesthetic agent; Z88.8 Allergy status to other drugs, medicaments and biological substances; Z91.018 Allergy to other foods

== ENCOUNTER 2016-12-17 13:09 | Emergency (ER) | payer MEDICARE, MEDICAID ==
[~2016-12-17] VITALS: Ht 165.1 cm; Wt 77.5 kg
[2016-12-17 13:13] VITALS: BP 120/88; PULSE 107; RESP 17; O2SAT 98
--- NOTE | 2016-12-17 13:19 | ED.REPORT ---
HPI-Abd Pain F 40 and Over Date of Service Dec 17, 2016 ED Provider: The patient is a 41 year old female with history of pulmonary emboli x2 on Xarelto, rheumatoid arthritis, multiple sclerosis, and gastroparesis, who presents to the emergency department complaining of "right lower lobe" pain that started early this morning. She also complains of a headache, nausea, vomiting, decreased oral intake, chills, diaphoresis, dizziness, and shortness of breath. These symptoms are similar to the previous times she has had blood clots. Nursing Notes Stated Complaint: RIGHT ABDOMINAL PAIN/BLOOD CLOTS Chief Complaint: General Complaint Nursing Notes Reviewed: Yes Allergies: Coded Allergies: Penicillins (Verified Allergy, Severe, 08/28/16) ketamine (Verified Allergy, Severe, 08/28/16) promethazine (Verified Allergy, Severe, 08/28/16) soy (Verified Allergy, Severe, 08/28/16) Uncoded Allergies: CELIAC (Allergy, Severe, 07/21/16) Scheduled ([Optizen supplement]) 2 CAPSULE PO DAILY Lorazepam (Lorazepam) 1 Mg Tablet 1 MG PO QID take with zofran Morphine Sulfate (Morphine Sulfate) 15 Mg Tablet 15 MG PO QID Ondansetron (Ondansetron) 4 Mg Tablet 4 MG PO QID take as same times a ativan Rivaroxaban (Xarelto) 20 Mg Tablet 20 MG PO DAILY Scheduled PRN Hydromorphone (Hydromorphone) 2 Mg Tablet 2 MG PO every 4 hours PRN PRN For Pain Lorazepam (Lorazepam Oral Concentrate) 2 Mg/1 Ml Oral.conc 1 MG PO PRN if unable to tolerate tablet General Time Seen by MD: 13:18 Chief Complaint Other (chest pain) Hx Obtained From: Patient Arrived By: Walk-in Sudden in Onset?: Yes Onset Occurred: 9 - 12 hours ago Symptom Duration: Since onset Progression since Onset: Constant Quality: Painful Severity: Current: Moderate Severity: Maximum: Severe Recent Healthcare: No recent hospitalization Similar Sx Previous: Yes Past Medical History Past Medical History Pulmonary embolism Gastroparesis Rheumatoid arthritis MS Past Surgical History Denies Family History Noncontributory Smoking History Never Smoker Social History Alcohol Use: Denies alcohol use Drug Use: Denies drug use Other Social History: Good social support, Local resident Occupation lives with caregiver/partner 08/20/2016 Ambulatory Status Independent Review of Systems +decreased intake Constitutional: Reports: Chills Respiratory: Reports: Shortness of breath Cardiovascular: Reports: Chest pain GI: Reports: Nausea, Vomiting Complete sys rev & neg: except as marked. Skin: Reports Diaphoresis Neurologic: Reports: Dizziness, Headache Physical Exam Vital Signs Vital Signs (First) Date Time Temp Pulse Resp B/P Pulse Ox O2 Delivery O2 Flow Rate FiO2 12/17/16 13:13 36.9 107 17 120/88 98 Room Air Initial VS: Reviewed Head / Eyes: Atraumatic, Normocephalic, PERRL ENT: Mucous membranes moist, Conjunctiva normal, No scleral icterus Neck: Supple, Non-tender, Full range of motion Lymphatic: No lymphadenopathy Extremities: Vascular intact, Neuro intact, No swelling, No tenderness Skin: Warm, Dry, No cyanosis Neurologic: Alert, Oriented, Nonfocal Psychiatric: Mood/affect normal, Behavior normal, Normal thought content General/Constitutional: Awake, Alert, No acute distress, Cooperative Respiratory / Chest: Atraumatic, Breath sounds NL, Breath sounds = bilat, No respiratory distress, No rales, No rhonchi, No wheezing, No stridor Cardiovascular: Heart rate NL, Regular rhythm, Heart sounds NL, Peripheral circulation NL Abdomen: Soft, Non-tender, McBurney's non-tender, No guarding, No rebound, BS normoactive, No distention, No hernia, No palpable mass, No pulsatile mass Back: No midline vertebral tend Flank / Spine / Paraspinal: Positive: Flank tender R Interpretation & Diagnostics Lab Results Interpretation Result Diagram: 12/17/16 1350 12/17/16 1350 Test 12/17/16 13:50 12/17/16 15:30 White Blood Count 9.0th/mm3 (3.8-10.1) Red Blood Count 3.93mil/mm3 (3.90-5.20) Hemoglobin 13.2g/dL (12.0-15.6) Hematocrit 38.9% (35.0-46.0) Mean Corpuscular Volume 99.0fL (81-100) Mean Corpuscular Hemoglobin 33.6pg (27.0-35.0) Mean Corpuscular Hemoglobin Concent 33.9% (32.0-37.0) Red Cell Distribution Width 13.1% (12.3-15.4) Platelet Count 279bil/L (150-400) Neutrophils (%) (Auto) 70.7% (40-74) Lymphocytes (%) (Auto) 19.6% (14-46) Monocytes (%) (Auto) 6.7% (4-12) Eosinophils (%) (Auto) 2.5% (0-5) Basophils (%) (Auto) 0.3% (0-3) D-Dimer < 0.50mg/L FEU (<0.50) Sodium Level 139mEq/L (134-144) Potassium Level 4.5mEq/L (3.5-5.2) Chloride Level 100mEq/L (97-108) Carbon Dioxide Level 24mmol/L (18-29) Blood Urea Nitrogen 19mg/dL (6-24) Creatinine 0.69mg/dL (0.57-1.00) Estimat Glomerular Filtration Rate 134mL/min (>59) Glucose Level 103mg/dL (60-99) Lactic Acid Level 0.8mmol/L (0.4-2.0) Calcium Level 11.4mg/dL (8.5-10.1) Magnesium Level 1.9mg/dL (1.6-2.6) Total Bilirubin 0.3mg/dL (0.0-1.2) Aspartate Amino Transf (AST/SGOT) 16U/L (0-50) Alanine Aminotransferase (ALT/SGPT) 13U/L (0-32) Alkaline Phosphatase 50U/L (25-150) Troponin T < 0.010ug/L (0.0-0.011) Total Protein 6.5g/dL (6.4-8.4) Albumin 4.0g/dL (3.4-5.0) Procalcitonin 0.02ng/mL (0.00-0.08) Urine Color Straw (YELLOW) Urine Appearance Clear (CLEAR,HAZY) Urine pH 5.5 (5.0-8.0) Urine Specific [place] <1.005 (1.003-1.035) Urine Protein Negativemg/dL (NEG,TRACE) Urine Glucose (UA) Negativemg/dL (NEGATIVE) Urine Ketones Negativemg/dL (NEGATIVE) Urine Occult Blood Small (NEGATIVE) Urine Nitrite Negative (NEGATIVE) Urine Bilirubin Negative (NEGATIVE) Urine Urobilinogen Normalmg/dL (NORMAL) Urine Leukocyte Esterase Negative (NEGATIVE) Urine RBC 0-2/hpf (0-2) Urine WBC 0-5/hpf (0-5) Urine Epithelial Cells Few/hpf (NONE-MOD) Urine Crystals None seen (NONE SEEN) Urine Bacteria None/hpf (NONE-FEW) Urine Hyaline Casts None/lpf (NONE) Urine Granular Casts None seen (NONE SEEN) Urine Waxy Casts None seen (NONE SEEN) Urine Red Blood Cell Casts None seen (NONE SEEN) Urine White Blood Cell Casts None seen (NONE SEEN) Urine Mucus None seen (None Seen) Urine Trichomonas None seen (NONE SEEN) Urine Yeast None (NONE SEEN) Urinalysis Comment None Urine Culture Reflexed Not indicated ECG Interpretation ECG Interpretation: Normal sinus rhythm with a rate of 78 bpm Time: 14:20 Interpreted by: ED physician CT Chest Interpretation IMPRESSION: 1. No evidence of pulmonary embolism. Dictated by: Arnaud Marte M.D. on 12/17/2016 at 15:20 Study type: CT pulm angiogram Interpretation / Wet Read by: Interpret - Radiologist CT Head Interpretation IMPRESSION: 1. No acute intracranial abnormality. Dictated by: Arnaud Marte M.D. on 12/17/2016 at 15:18 Study: Head CT no contrast Interpretation / Wet Read by: Interpret - Radiologist Re-Eval/Medical Decision Med Decision/Clinical Course No obvious life-threatening pathologies identified, patient's feeling better. Will be discharged home to follow-up with her regular doctor. Source of Hx: Old records Re-Evaluation/Progress : Time of Eval: 15:42 Re-Evaluation/Progress Note: Rechecked the patient. Discussed workup results and plan for discharge if her urinalysis is negative. All questions were addressed. Counseled Regarding: Diagnosis, Lab results, Need for follow-up, When/why to return to ED Discharge & Departure Primary Impression: Right flank pain Additional Impression: Headache Headache type: unspecified Headache chronicity pattern: unspecified pattern Intractability: not intractable Qualified Code: R51 - Headache Disposition: Home Discharge Condition All VS Reviewed: Yes Condition: Stable Additional Instructions: Thank you for entrusting us with your care today. Your workup today is reassuring. There is no evidence of a blood clot or any intracranial abnormalities. Continue taking your medications as prescribed. Followup with your regular doctor next week for further evaluation. Return to the emergency department for any new or concerning symptoms. Referrals: Joe Tao MD (PCP) Scribe Attestation Portions of this note were transcribed by Kaitlny Christina. I, Dr. Maharaj personally performed the history, physical exam and medical decision-making; I reviewed and confirmed the accuracy of the information in the transcribed note. Signed by: Berna Chavez, 12/17/2016 at 1600. copies to: Joe Tao MD, Timothy S DO Dec 17, 2016 13:19 Kaitlyn Christina Dec 17, 2016 13:23
[2016-12-17] MEDS ORDERED: 0.9% Sodium Chloride 1,000 ML IV ONE (13:38)
[2016-12-17] MEDS ORDERED: [UNRECOGNIZED DRUG - OTHER] PO (13:40)
[2016-12-17 14:04] LABS: BASOPHILS % (AUTO) 0.3 % (0-3); EOSINOPHILS % (AUTO) 2.5 % (0-5); MONOCYTES % (AUTO) 6.7 % (4-12); Mean Corpuscular Hemoglobin 33.6 pg (27.0-35.0); NEUTROPHILS % (AUTO) 70.7 % (40-74); Platelet Count 279 bil/L (150-400)
[2016-12-17 14:25] LABS: Magnesium 1.9 mg/dL (1.6-2.6)
[2016-12-17 14:28] LABS: TROPONIN T < 0.010 ug/L (0.0-0.011)
[2016-12-17] MEDS ORDERED: HYDROmorphone 0.5 mg/0.5 mL iSecure Syringe IVPUSH PRN (14:50)
[2016-12-17] MEDS ORDERED: ProchlorPERazine 5 mg/mL 2 mL Inj IVPUSH ONE (14:55)
--- NOTE | 2016-12-17 15:22 | DRSVH ---
PROCEDURE: CT BRAIN WITHOUT CONTRAST ([id number]) INDICATIONS: Headache on zarelto TECHNIQUE: Noncontrast 4.5 mm thick angled axial sections acquired from the foramen magnum to the vertex, with c oronal reformats. COMPARISON: None. FINDINGS: Image quality: Excellent. CSF spaces: Basal cisterns are patent. No extra-axial fluid collections. Ventricles are normal in size and shape. Brain: No intracranial hemorrhage, mass, or mass effect. Logan-white matter interface is preserved. Skull and face: Calvarium and visualized facial bones are intact, without suspicious lesions. Sinuses: Visualized sinuses and mastoids are clear. IMPRESSION: 1. No acute intracranial abnormality. Dictated by: Arnaud Marte M.D. on 12/17/2016 at 15:18 Approved by: Arnaud Marte M.D. on 12/17/2016 at 15:20
--- NOTE | 2016-12-17 15:37 | DRSVH ---
PROCEDURE: CT ANGIO CHEST PULMONARY EMBOLISM ([id number]) INDICATIONS: evaluate for pulmonary is no wall this is a slightly low in this is an and a is in dose and 1 and a no a new or old lesion in a disease and is in is in the eye is a 2 and is in the embolus TECHNIQUE: After the administration of intravenous contrast, 2 mm thick sections acquired from the pulmonary api zhanna to the posterior costophrenic angles. 3-dimensional maximum intensity projection (MIP) coronal a nd sagittal reformats were then acquired through the thorax. For radiation dose reduction, the follo wing was used: automated exposure control, adjustment of mA and/or kV according to patient size. COMPARISON: [facility], CT, CT ANGIO CHEST PE, 08/06/2016, 18:02. FINDINGS: Image quality: Excellent. Pulmonary arteries: Pulmonary arteries are normal in size, and demonstrate no intraluminal filling d efects to suggest central pulmonary embolism. Lungs and pleura: There is mild dependent atelectasis. No pleural effusions or pneumothorax. Centra l and peripheral airways are patent. Mediastinum: Heart size is normal, without pericardial effusion. No mediastinal or hilar adenopathy . Thoracic aorta is normal in caliber and enhancement. Esophagus demonstrates mild wall thickening, without hiatal hernia. Bones and chest wall: No suspicious bony lesions. Ribs and thoracic spine appear intact throughout. Thyroid gland is dose. No axillary or supraclavicular adenopathy. Abdomen: Visualized upper abdominal solid organs appear normal in the early arterial phase of enhanc ement. IMPRESSION: 1. No evidence of pulmonary embolism. Dictated by: Arnaud Marte M.D. on 12/17/2016 at 15:20 Approved by: Arnaud Marte M.D. on 12/17/2016 at 15:35
[2016-12-17 16:05] VITALS: BP 126/82; PULSE 98; RESP 16; O2SAT 98
[2016-12-17 16:06] LABS: APPEARANCE,URINE CLEAR (CLEAR,HAZY); COLOR,URINE STRAW (YELLOW); OCCULT BLOOD,URINE SMALL (NEGATIVE); PH,URINE 5.5 (5.0-8.0); UROBILINOGEN,URINE NORMAL (NORMAL)
== END 2016-12-17 16:16 | disposition home or self-care (01) ==
LOC: SED 13:09
DX: R10.31 Right lower quadrant pain (principal); R51 Headache; Z86.711 Personal history of pulmonary embolism; Z79.01 Long term (current) use of anticoagulants; G35 Multiple sclerosis; K31.84 Gastroparesis; M06.9 Rheumatoid arthritis, unspecified; Z88.0 Allergy status to penicillin; Z88.8 Allergy status to other drugs, medicaments and biological substances
CPT/HCPCS: 36415; 70450; 71275; 80053; 81000; 83605; 83735; 84145; 84484; 85025; 85378; 87040; 93005; 96361; 96374; 96375; 99285; J0780; J1170; J1642; J7030; Q9967

== ENCOUNTER 2017-02-06 11:16 | Emergency (ER) | payer MEDICARE, MEDICAID ==
[~2017-02-06] VITALS: Ht 165.1 cm; Wt 90.8 kg
[~2017-02-06 11:16] MED LIST changes: +[UNRECOGNIZED DRUG - OTHER] PO
[2017-02-06 11:20] VITALS: BP 149/99; PULSE 73; RESP 18; O2SAT 98
--- NOTE | 2017-02-06 11:32 | ED.REPORT ---
HPI-Abd Pain F 40 and Over Date of Service Feb 06, 2017 ED Provider: Dr. Maharaj Pt is a 41 y/o female anticoagulated on Xarelto w/ a hx of prior PE, gastroparesis s/p Ritter port placement presenting to the ED c/o pelvic pain onset 5 days ago. The patient [facility] . Since that time she has been experiencing intense pelvic pain, decreased urination, intermittent irregular rapid palpitations, edema of her arms/abdomen/face, 15 lb weight gain secondary to edema, nausea, vomiting, and diarrhea. Pt denies fever, upper abdominal pain, vaginal bleeding, hematemesis, bloody stool. The patient has a Ritter port and has been self-administering 2 liters of LR each day without much change in her urination. She was recently started back on her Xarelto. Nursing Notes Stated Complaint: ABDOMINAL PAIN Chief Complaint: Female Abdominal Pain Nursing Notes Reviewed: Yes Allergies: Coded Allergies: Penicillins (Verified Allergy, Severe, 02/06/17) ketamine (Verified Allergy, Severe, CODED, 02/06/17) promethazine (Verified Allergy, Severe, 02/06/17) soy (Verified Allergy, Severe, 02/06/17) Uncoded Allergies: CELIAC (Allergy, Severe, 07/21/16) Scheduled ([Optizen supplement]) 2 CAPSULE PO DAILY Lorazepam (Lorazepam) 1 Mg Tablet 1 MG PO QID take with zofran Morphine Sulfate (Morphine Sulfate) 15 Mg Tablet 15 MG PO QID Ondansetron (Ondansetron) 4 Mg Tablet 4 MG PO QID take as same times a ativan Rivaroxaban (Xarelto) 20 Mg Tablet 20 MG PO DAILY Scheduled PRN Hydromorphone (Hydromorphone) 2 Mg Tablet 2 MG PO every 4 hours PRN PRN For Pain Lorazepam (Lorazepam Oral Concentrate) 2 Mg/1 Ml Oral.conc 1 MG PO PRN if unable to tolerate tablet General Time Seen by MD: 11:31 Chief Complaint Abdominal pain Hx Obtained From: Patient Arrived By: Walk-in Sudden in Onset?: No Onset Occurred: 5 days ago Symptom Duration: Since onset Progression since Onset: Constant Location: : Abdomen lower Quality: Painful Severity: Current: Moderate Severity: Maximum: Moderate Similar Sx Previous: No Past Medical History Past Medical History Hx of pulmonary embolism Gastroparesis s/p Ritter port placement Rheumatoid arthritis MS "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" Past Surgical History Vein ligation Ritter port placement Family History Noncontributory Smoking History Never Smoker Social History Alcohol Use: Denies alcohol use Drug Use: Denies drug use Other Social History: Good social support, Local resident Occupation lives with caregiver/partner 08/20/2016 Ambulatory Status Independent Review of Systems Constitutional: Denies: Fever Cardiovascular: Reports: Edema, Palpitations GI: Reports: Abdominal pain, Diarrhea, Nausea, Vomiting, Denies: Bloody/tarry stool, Hematemesis Female: Reports: Pelvic pain, Urination decreased, Denies: Vaginal bleeding - abnl Complete sys rev & neg: except as marked. Physical Exam Vital Signs Vital Signs (First) Date Time Temp Pulse Resp B/P Pulse Ox O2 Delivery O2 Flow Rate FiO2 02/06/17 11:20 37.0 73 18 149/99 98 Room Air Initial VS: Reviewed, Vital signs normal Head / Eyes: Atraumatic, Normocephalic ENT: Mucous membranes moist, Conjunctiva normal Neck: Supple, Full range of motion Extremities: Vascular intact, Neuro intact Skin: Warm, Dry, No cyanosis Neurologic: Alert, Oriented, Nonfocal Psychiatric: Mood/affect normal, Behavior normal, Normal thought content General/Constitutional: Awake, Alert, No acute distress, Cooperative, Not toxic appearing Behavior: Positive: Tearful Appearance / Presentation: Positive: Uncomfortable Respiratory / Chest: Breath sounds NL, Breath sounds = bilat, No respiratory distress, No rales, No rhonchi, No wheezing, No stridor Cardiovascular: Heart rate NL, Regular rhythm, Heart sounds NL, No murmurs Abdomen: Atraumatic, Soft, No guarding, No rebound, No distention, No palpable mass Pelvic tenderness present Back: Full range of motion, Painless range of motion ENT: Atraumatic, Airway patent Mild facial edema Interpretation & Diagnostics Lab Results Interpretation Result Diagram: 02/06/17 1200 02/06/17 1200 Test 02/06/17 12:00 02/06/17 12:43 White Blood Count 8.7th/mm3 (3.8-10.1) Red Blood Count 3.27mil/mm3 (3.90-5.20) Hemoglobin 11.0g/dL (12.0-15.6) Hematocrit 32.7% (35.0-46.0) Mean Corpuscular Volume 100.0fL (81-100) Mean Corpuscular Hemoglobin 33.6pg (27.0-35.0) Mean Corpuscular Hemoglobin Concent 33.6% (32.0-37.0) Red Cell Distribution Width 13.6% (12.3-15.4) Platelet Count 229bil/L (150-400) Neutrophils (%) (Auto) 72.4% (40-74) Lymphocytes (%) (Auto) 17.4% (14-46) Monocytes (%) (Auto) 5.8% (4-12) Eosinophils (%) (Auto) 3.6% (0-5) Basophils (%) (Auto) 0.3% (0-3) D-Dimer 0.87mg/L FEU (<0.50) Sodium Level 141mEq/L (134-144) Potassium Level 3.5mEq/L (3.5-5.2) Chloride Level 108mEq/L (97-108) Carbon Dioxide Level 20mmol/L (18-29) Blood Urea Nitrogen 10mg/dL (6-24) Creatinine 0.44mg/dL (0.57-1.00) Estimat Glomerular Filtration Rate 225mL/min (>59) Glucose Level 110mg/dL (60-99) Lactic Acid Level 1.4mmol/L (0.4-2.0) Calcium Level 8.5mg/dL (8.5-10.1) Magnesium Level 1.5mg/dL (1.6-2.6) Total Bilirubin 0.3mg/dL (0.0-1.2) Aspartate Amino Transf (AST/SGOT) 12U/L (0-50) Alanine Aminotransferase (ALT/SGPT) 12U/L (0-32) Alkaline Phosphatase 38U/L (25-150) Troponin T 0.010ug/L (0.0-0.011) Total Protein 6.0g/dL (6.4-8.4) Albumin 3.5g/dL (3.4-5.0) Lipase 24U/L (13-60) Urine Color Straw (YELLOW) Urine Appearance Hazy (CLEAR,HAZY) Urine pH 6.0 (5.0-8.0) Urine Specific [place] 1.010 (1.003-1.035) Urine Protein Negativemg/dL (NEG,TRACE) Urine Glucose (UA) Negativemg/dL (NEGATIVE) Urine Ketones Negativemg/dL (NEGATIVE) Urine Occult Blood Small (NEGATIVE) Urine Nitrite Negative (NEGATIVE) Urine Bilirubin Negative (NEGATIVE) Urine Urobilinogen Normalmg/dL (NORMAL) Urine Leukocyte Esterase Negative (NEGATIVE) Urine RBC 0-2/hpf (0-2) Urine WBC 0-5/hpf (0-5) Urine Epithelial Cells Occasional/hpf (NONE-MOD) Urine Crystals None seen (NONE SEEN) Urine Bacteria Moderate/hpf (NONE-FEW) Urine Hyaline Casts None/lpf (NONE) Urine Granular Casts None seen (NONE SEEN) Urine Waxy Casts None seen (NONE SEEN) Urine Red Blood Cell Casts None seen (NONE SEEN) Urine White Blood Cell Casts None seen (NONE SEEN) Urine Mucus None seen (None Seen) Urine Trichomonas None seen (NONE SEEN) Urine Yeast None (NONE SEEN) Urinalysis Comment None Urine Culture Reflexed Indicated Lab Results Interpretation: Post void residual: 0 cc ECG Interpretation Time: 12:14 Interpreted by: ED physician Normal ECG Interpretation: Normal ECG w/ rate of... (64), Normal rate, Normal sinus rhythm, No acute ischemic changes, Normal QRS, Normal axis, Normal intervals, Adequate tracing CT Chest Interpretation IMPRESSION: 1. Lungs are clear. 2. No visualized pulmonary embolism. Dictated by: Tabitha Acevedo M.D. on 02/06/2017 at 15:54 Approved by: Tabitha Acevedo M.D. on 02/06/2017 at 15:56 Study type: CT pulm angiogram Interpretation / Wet Read by: Interpret - Radiologist US Focused non-OB Pelvis IMPRESSION: Exam limited as no endovaginal imaging was performed. Within these limits, no definite evidence for retained products of conception. Dictated by: Ariel MARQUIS Interpreted: Ketan Dietrich MD on 02/06/2017 at 14:08 Approved by: Ketan Dietrich M.D. on 02/06/2017 at 14:23 Exam Performed by: [facility] Exam Type: Diagnostic Clinical Category: Initial exam Exam Interpreted by: Radiologist Re-Eval/Medical Decision Med Decision/Clinical Course No obvious life-threatening pathology. Patient will be discharged. Source of Hx: Old records Re-Evaluation/Progress : Time of Eval: 16:00 Patient Status: Condition improved, Moderate relief Re-Evaluation/Progress Note: Pt rechecked. Informed pt of plan for discharge. Pt understands and agrees with plan for discharge. F/U instructions and RTER warnings given. All questions addressed. Counseled Regarding: Diagnosis, Lab results, Need for follow-up, When/why to return to ED Discharge & Departure Primary Impression: Pelvic pain Additional Impressions: Edema Edema type: unspecified Qualified Code: R60.9 - Edema, unspecified Nausea, vomiting, and diarrhea Disposition: Home Discharge Condition All VS Reviewed: Yes Condition: Stable Patient Instructions: Acute Abdominal Pain (ED) Additional Instructions: No dangerous cause for your symptoms was discovered. The CT scan of your chest showed no signs of lung disease or pulmonary embolism. The ultrasound was relatively normal. Your bladder scan was also normal. Labs were reassuring. No sign of infection. Kidney function was normal. Follow-up with your primary care doctor in 2-3 days for a recheck. Return to the emergency department if you develop high fever or for other new or worsening symptoms. Referrals: Joe Tao MD (PCP) Scribe Attestation Portions of this note were transcribed by Jacek Soto. I, Dr. Maharaj personally performed the history, physical exam and medical decision-making; I reviewed and confirmed the accuracy of the information in the transcribed note. copies to: Joe Tao MD, Timothy David PAZ Feb 06, 2017 11:32 JACEK SOTO Feb 06, 2017 11:34
[2017-02-06] MEDS ORDERED: 0.9% Sodium Chloride 1,000 ML IV ONE (11:46)
[2017-02-06] MEDS ORDERED: Ondansetron 2 mg/mL 2 mL Inj IVPUSH PRN (11:50)
[2017-02-06] MEDS ORDERED: ProchlorPERazine 5 mg/mL 2 mL Inj IVPUSH ONE (11:55)
[2017-02-06] MEDS: HYDROmorphone 0.5 mg/0.5 mL iSecure Syringe IVPUSH PRN ×3 (12:03→15:43)
[2017-02-06 12:11] LABS: BASOPHILS % (AUTO) 0.3 % (0-3); EOSINOPHILS % (AUTO) 3.6 % (0-5); MONOCYTES % (AUTO) 5.8 % (4-12); Mean Corpuscular Hemoglobin 33.6 pg (27.0-35.0); NEUTROPHILS % (AUTO) 72.4 % (40-74); Platelet Count 229 bil/L (150-400)
[2017-02-06 12:37] LABS: TROPONIN T 0.01 ug/L (0.0-0.011)
[2017-02-06 12:48] LABS: Magnesium 1.5 mg/dL (1.6-2.6)
[2017-02-06] MEDS ORDERED: Magnesium Sulf 2 Gm/50mL Water 2 GM in IV Premix 1 EACH IV ONE (12:55)
[2017-02-06 13:24] LABS: APPEARANCE,URINE HAZY (CLEAR,HAZY); COLOR,URINE STRAW (YELLOW); OCCULT BLOOD,URINE SMALL (NEGATIVE); UROBILINOGEN,URINE NORMAL (NORMAL)
--- NOTE | 2017-02-06 14:26 | DRSVH ---
PROCEDURE: US PELVIC SONOGRAM INDICATIONS: recent d&C on zarelto, pelvic pain TECHNIQUE: Real-time scanning was performed of the pelvic organs, with image documentation. Additional endovagi nal scanning was performed. COMPARISON: None. FINDINGS: (orthogonal measurements) Uterus size: 8.58 cm, 4.29 cm, 5.49 cm Endometrium thickness: 9 mm Right ovary size: 2.74 cm, 2.57 cm, 2.72 cm Left ovary size: Not visualized. Transabdominal scanning: Limited scanning through the kidneys shows no hydronephrosis. No pathologi c free abdominal or pelvic fluid. Endovaginal scanning: Uterus: Uterus is normal in size and appearance. Endometrium is within normal physiologic limits. Ovaries: Normal right ovary. Left ovary not visualized. IMPRESSION: Exam limited as no endovaginal imaging was performed. Within these limits, no definite e vidence for retained products of conception. Dictated by: Ariel Solis [facility] Interpreted: Ketan Dietrich MD on 02/06/2017 at 14:08 Approved by: Ketan Dietrich M.D. on 02/06/2017 at 14:23
--- NOTE | 2017-02-06 15:58 | DRSVH ---
PROCEDURE: CT ANGIO CHEST PULMONARY EMBOLISM ([id number]) INDICATIONS: chest pain, ho pe TECHNIQUE: After the administration of intravenous contrast, 2 mm thick sections acquired from the pulmonary api zhanna to the posterior costophrenic angles. 3-dimensional maximum intensity projection (MIP) coronal a nd sagittal reformats were then acquired through the thorax. For radiation dose reduction, the follo wing was used: automated exposure control, adjustment of mA and/or kV according to patient size. COMPARISON: [facility], CT, CT ANGIO CHEST PE, 12/17/2016, 15:01. FINDINGS: Image quality: Excellent. Pulmonary arteries: Pulmonary arteries are normal in size, and demonstrate no intraluminal filling d efects to suggest central pulmonary embolism. Lungs and pleura: Lungs are clear. No pleural effusions or pneumothorax. Central and peripheral ai rways are patent. Mediastinum: Heart size is normal, without pericardial effusion. No mediastinal or hilar adenopathy . Thoracic aorta is normal in caliber and enhancement. Esophagus is normal in caliber, without hiat al hernia. Bones and chest wall: No suspicious bony lesions. Ribs and thoracic spine appear intact throughout. Thyroid gland is unremarkable. No axillary or supraclavicular adenopathy. Abdomen: Visualized upper abdominal solid organs appear normal in the early arterial phase of enhanc ement. IMPRESSION: 1. Lungs are clear. 2. No visualized pulmonary embolism. Dictated by: Tabitha Acevedo M.D. on 02/06/2017 at 15:54 Approved by: Tabitha Acevedo M.D. on 02/06/2017 at 15:56
[2017-02-06 16:30] VITALS: BP 149/75; PULSE 73; RESP 18; O2SAT 98
== END 2017-02-06 16:32 | disposition home or self-care (01) ==
LOC: SED 11:16
DX: R10.2 Pelvic and perineal pain (principal); R06.9 Unspecified abnormalities of breathing; R11.2 Nausea with vomiting, unspecified; R19.7 Diarrhea, unspecified; Z86.73 Personal history of transient ischemic attack (TIA), and cerebral infarction without residual deficits; Z88.0 Allergy status to penicillin; Z88.8 Allergy status to other drugs, medicaments and biological substances
CPT/HCPCS: 36415; 51798; 71275; 76856; 80053; 81000; 83605; 83690; 83735; 84484; 85025; 85378; 87086; 87088; 93005; 96361; 96374; 96375; 99285; J0780; J1170; J2405; J7030; Q9967